=== PATIENT | male | born 1960 | race African-American/Black ===

== ENCOUNTER 2017-08-26 04:19 | Emergency (ER) | payer OTHER, MEDICARE ==
[~2017-08-26] VITALS: Ht 193 cm; Wt 106.6 kg
[~2017-08-26 04:19] MED LIST: ALPH-E-MIXED-4400 IU; ASPIRIN EC81 M1 PO; ATORVASTATIN CA40 MG PO; CARTIA XT180 MG; MYCOPHENOLATE500 MG PO; NORVASC5 M1 PO; OYSCO 500 + D 51 TAB; PANTOPRAZOLE SO40 MG; PERCOCET 325 MG1 TA2 PO; SERTRALINE HYD100 MG PO; TACROLIMUS1 MG; TACROLIMUS5 MG PO; TAMSULOSIN HYD0.4 MG PO; VITAMIN C500 M3; [UNRECOGNIZED DRUG - OTHER]
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
[2017-08-26 06:29] LABS: ABSOLUTE BASOPHIL COUNT 0 /CUMM (0.0-0.2); ABSOLUTE EOSINOPHIL COUNT 0.2 /CUMM (0.0-0.7); ABSOLUTE GRANULOCYTE CT 2.9 /CUMM (1.4-6.5); ABSOLUTE MONOCYTE COUNT 0.3 /CUMM (0.10-0.60); BASOPHIL % 0.3 % (0.0-2.0); PLATELET COUNT 140 /CUMM (130-400)
[2017-08-26 06:33] LABS: ABSOLUTE LYMPH COUNT 0.9 /CUMM (1.2-3.4); EOSINOPHIL % 4.5 % (0-5); GRANULOCYTE % 66.6 % (42.2-75.2); HEMATOCRIT 42.8 % (42-52); MEAN CORPUSCULAR HGB 32.5 PG (27.0-31.0); MEAN CORPUSCULAR HGB CONC 35.2 G/DL (33.0-37.0); MEAN CORPUSCULAR VOLUME 92.3 FL (80.0-94.0); MEAN PLATELET VOLUME 11.3 FL (7.4-10.4); RBC DISTRIBUTION WIDTH 14.3 % (11.5-14.5); RED BLOOD CELL CT 4.63 /CUMM (4.70-6.10); WHITE BLOOD CELL COUNT 4.3 /CUMM (4.8-10.8)
[2017-08-26 06:38] LABS: PT 17.4 SEC (9.4-12.5); PTT 32 SEC (25-37)
[2017-08-26 08:27] VITALS: BP 135/90
[2017-08-26] MEDS ORDERED: XARELTO20 M2 PO (08:31)
[2017-08-26] MEDS ORDERED: TACROLIMUS PO (08:32)
[2017-08-26] MEDS ORDERED: TACROLIMUS1 M1 PO (08:32)
[2017-08-26] MEDS ORDERED: LISINOPRIL5 M1 PO (08:32)
[2017-08-26] MEDS ORDERED: DILTIAZEM HCL30 M1 PO (08:32)
[2017-08-26] MEDS ORDERED: MYCOPHENOLATE PO (08:33)
[2017-08-26] MEDS ORDERED: OS-CAL 500+D31 EAC1 PO (08:34)
[2017-08-26] MEDS ORDERED: PANTOPRAZOLE SO40 M1 PO (08:34)
[2017-08-26] MEDS ORDERED: ATORVASTATIN CA40 M1 PO (08:35)
[2017-08-26] MEDS ORDERED: SERTRALINE HCL100 MG PO (08:35)
== END 2017-08-26 09:09 ==
LOC: ERH 04:19
PROVIDERS: Pediatrics
DX: R07.89 Other chest pain (principal); M54.5 Low back pain; M54.2 Cervicalgia
CPT/HCPCS: 74176; 93005; 93010